=== PATIENT | male | born 1960 | race Caucasian/White ===

== ENCOUNTER 2020-04-08 07:23 | Outpatient (REF) | payer BC, SELFPAY ==
[2020-04-08 11:14] LABS: MANUAL DIFF FLAG NO
[2020-04-08 11:21] LABS: Basophils Percent Auto 0.4 % (0-2); Eosinophils Absolute Auto 0.1 X10*3/uL (0.0-0.4); Eosinophils Percent Auto 0.9 % (0-4); Hemoglobin 12.9 g/dl (14.0-18.0); Imm Gran Abs Auto 0.02 X10*3/uL (0.00-0.03); Imm Gran Pct Auto 0.4 % (0.0-0.4); Lymphocytes Absolute Auto 1.9 X10*3/uL (1.2-4.9); Lymphocytes Percent Auto 33.5 % (20-40); Mean Corpuscular HGB Conc 33.1 g/dl (31.0-36.0); Mean Corpuscular Hemoglobin 33.2 pg (27.0-33.0); Mean Corpuscular Volume 100.3 fL (80-98); Mean Platelet Volume 9.8 fL (9.4-12.4); Monocytes Absolute Auto 0.6 X10*3/uL (0.1-1.2); Monocytes Percent Auto 9.8 % (2-11); Neutrophils Absolute Auto 3.1 X10*3/uL (2.0-8.3); Platelet Count 171 X10*3/uL (160-400); Red Blood Count 3.89 X10*6/uL (4.60-5.80); Red Cell Distribution Width 13.2 % (11.0-16.0); White Blood Count 5.6 X10*3/uL (4.8-10.8)
[2020-04-08 11:41] LABS: Alanine Aminotransferase 40 U/L (0-40); Albumin Level 4.4 g/dL (3.5-5.0); Alkaline Phosphatase 48 U/L (39-117); Anion Gap 10 (12-20); Aspartate Amino Transferase 29 U/L (5-37); Bilirubin Total 0.6 mg/dL (0.0-1.0); Blood Urea Nitrogen 28 mg/dL (9-16); Calcium 8.8 mg/dL (8.4-10.2); Carbon Dioxide 28 mmol/L (22-29); Chloride 105 mmol/L (96-108); Cholesterol 183 mg/dL; Estimated Glomerular Filt Rate > 60; Glucose Fasting 81 mg/dL (60-99); HDL Cholesterol 68 mg/dL; LDL Cholesterol Calculated 106 mg/dl; Potassium 3.9 mmol/l (3.3-5.1); Sodium 139 mmol/L (135-145); Total Protein 6.6 g/dL (6.5-8.0); Triglycerides 46 mg/dL
== END 2020-04-08 07:24 | disposition home or self-care (01) ==
LOC: HO.HMGCLDS 07:23
PROVIDERS: PCP Internal Medicine; Visit Provider Physician Assistant
DX: Z00.00 Encounter for general adult medical examination without abnormal findings (principal); Z13.6 Encounter for screening for cardiovascular disorders
CPT/HCPCS: 36415; 80053; 80061; 85025

== ENCOUNTER 2020-05-04 07:59 | Outpatient (REF) | payer BC, SELFPAY ==
[2020-05-04 12:18] LABS: Folate > 20.0 ng/mL (> or = 4.0); Vitamin B12 > 2000 pg/mL (200-900)
[2020-05-04 12:23] LABS: Iron 148 mcg/dL (45-160); Percent Iron Saturation 46 % (15-50); Total Iron Binding Capacity 323 mcg/dL (228-428); Unsaturated Iron Binding 175 ug/dL
== END 2020-05-04 08:00 | disposition home or self-care (01) ==
LOC: HO.HMGCLDS 07:59
PROVIDERS: PCP Internal Medicine; Visit Provider Physician Assistant
DX: D64.9 Anemia, unspecified (principal)
CPT/HCPCS: 36415; 82607; 82746; 83540

== ENCOUNTER 2022-07-05 07:26 | Outpatient (REF) | payer BC, SELFPAY ==
[2022-07-05 11:41] LABS: MANUAL DIFF FLAG NO
[2022-07-05 11:51] LABS: Basophils Percent Auto 0.8 % (0-2); Eosinophils Absolute Auto 0.1 X10*3/uL (0.0-0.4); Hematocrit 40.9 % (42.0-52.0); Hemoglobin 13.6 g/dl (14.0-18.0); Imm Gran Abs Auto 0.01 X10*3/uL (0.00-0.03); Imm Gran Pct Auto 0.3 % (0.0-0.4); Lymphocytes Percent Auto 28.9 % (20-40); Mean Corpuscular HGB Conc 33.3 g/dl (31.0-36.0); Mean Corpuscular Hemoglobin 33.3 pg (27.0-33.0); Mean Platelet Volume 9.8 fL (9.4-12.4); Monocytes Absolute Auto 0.4 X10*3/uL (0.1-1.2); Monocytes Percent Auto 12.3 % (2-11); Neutrophils Percent Auto 55.7 % (45-73); Platelet Count 174 X10*3/uL (160-400); Red Blood Count 4.09 X10*6/uL (4.60-5.80); Red Cell Distribution Width 13.2 % (11.0-16.0); White Blood Count 3.6 X10*3/uL (4.8-10.8)
[2022-07-05 12:02] LABS: Estimated Average Glucose 120 mg/dL; Hemoglobin A1C 148.4415 umol/L; Hemoglobin A1c % 5.8 %
[2022-07-05 12:22] LABS: Alanine Aminotransferase 33 U/L (0-40); Albumin Level 4.4 g/dL (3.5-5.0); Alkaline Phosphatase 48 U/L (39-117); Anion Gap 10 (12-20); Aspartate Amino Transferase 32 U/L (5-37); Bilirubin Total 0.5 mg/dL (0.0-1.0); Blood Urea Nitrogen 19 mg/dL (9-16); Calcium 9.1 mg/dL (8.4-10.2); Carbon Dioxide 29 mmol/L (22-29); Chloride 107 mmol/L (96-108); Cholesterol 173 mg/dL; Estimated Glomerular Filt Rate > 60; Glucose Random 91 mg/dL (60-115); HDL Cholesterol 57 mg/dL; LDL Cholesterol Calculated 106 mg/dl; Potassium 4.3 mmol/L (3.3-5.1); Sodium 142 mmol/L (135-145); Total Protein 6.6 g/dL (6.5-8.0); Triglycerides 54 mg/dL
[2022-07-05 12:39] LABS: Prostate Specific Antigen 1.55 ng/mL (<0.05-4.0)
== END 2022-07-05 07:27 | disposition home or self-care (01) ==
LOC: HO.HMGCLDS 07:26
PROVIDERS: PCP Internal Medicine; Visit Provider Physician Assistant
DX: Z00.00 Encounter for general adult medical examination without abnormal findings (principal); Z12.5 Encounter for screening for malignant neoplasm of prostate; Z80.42 Family history of malignant neoplasm of prostate; E78.00 Pure hypercholesterolemia, unspecified; R73.01 Impaired fasting glucose
CPT/HCPCS: 36415; 80053; 80061; 83036; 84153; 85025

== ENCOUNTER 2023-11-13 07:26 | Outpatient (REF) | payer MEDICARE, SELFPAY ==
[2023-11-13 10:20] LABS: MANUAL DIFF FLAG NO
[2023-11-13 10:26] LABS: Basophils Percent Auto 0.6 % (0-2); Eosinophils Absolute Auto 0.1 X10*3/uL (0.0-0.4); Eosinophils Percent Auto 1.9 % (0-4); Hemoglobin 13.7 g/dl (14.0-18.0); Lymphocytes Percent Auto 32.6 % (20-40); Mean Corpuscular HGB Conc 34.3 g/dl (31.0-36.0); Mean Corpuscular Hemoglobin 33.7 pg (27.0-33.0); Mean Corpuscular Volume 98.5 fL (80.0-98.0); Mean Platelet Volume 9.9 fL (9.4-12.4); Monocytes Absolute Auto 0.4 X10*3/uL (0.1-1.2); Monocytes Percent Auto 12.2 % (2-11); Neutrophils Absolute Auto 1.7 x10*3/uL (2.0-8.3); Neutrophils Percent Auto 52.7 % (45-73); Platelet Count 149 X10*3/uL (160-400); Red Blood Count 4.06 X10*6/uL (4.60-5.80); Red Cell Distribution Width 13.3 % (11.0-16.0); White Blood Count 3.2 X10*3/uL (4.8-10.8)
[2023-11-13 11:02] LABS: HBS Num1 78.63 mIU/mL (0-7.99); ~Hepatitis B Surface Antibody REACTIVE (Nonreactive)
[2023-11-13 11:03] LABS: Alanine Aminotransferase 31 U/L (0-40); Albumin Level 4.4 g/dL (3.5-5.0); Alkaline Phosphatase 45 U/L (39-117); Anion Gap 13 (12-20); Aspartate Amino Transferase 29 U/L (5-37); Bilirubin Total 0.6 mg/dL (0.0-1.0); Blood Urea Nitrogen 20 mg/dL (9-16); Calcium 9.6 mg/dL (8.4-10.2); Carbon Dioxide 28 mmol/L (22-29); Chloride 105 mmol/L (96-108); Cholesterol 163 mg/dL (<200); Estimated Glomerular Filt Rate > 60; Glucose Random 93 mg/dL (60-115); HDL Cholesterol 59 mg/dL (>40); LDL Cholesterol Calculated 93 mg/dL (<100); Potassium 4.3 mmol/L (3.3-5.1); Sodium 142 mmol/L (135-145); Total Protein 6.8 g/dL (6.5-8.0); Triglycerides 59 mg/dL (<150)
[2023-11-13 11:12] LABS: Estimated Average Glucose 117 mg/dL; Hemoglobin A1c % 5.7 % (<6.0)
[2023-11-13 11:18] LABS: Prostate Specific Antigen 2.35 ng/mL (<0.05-4.0)
== END 2023-11-13 07:27 | disposition home or self-care (01) ==
LOC: HO.HMGCLDS 07:26
PROVIDERS: PCP Internal Medicine; Visit Provider Physician Assistant
DX: Z00.00 Encounter for general adult medical examination without abnormal findings (principal); Z23 Encounter for immunization; Z12.5 Encounter for screening for malignant neoplasm of prostate; Z13.1 Encounter for screening for diabetes mellitus; Z13.220 Encounter for screening for lipoid disorders; Z13.0 Encounter for screening for diseases of the blood and blood-forming organs and certain disorders involving the immune mechanism
CPT/HCPCS: 36415; 80053; 80061; 83036; 84153; 85025; 86706

== ENCOUNTER 2024-03-17 07:40 | Day surgery (SDC) | payer MEDICARE, SELFPAY ==
[2024-03-13 13:44] VITALS: BMI 26.0
--- NOTE | 2024-03-14 10:15 | HO.ANESPROP2 ---
Documented by User: Marilu Perez NP 03/14/24 10:15 HPI - Anesthesia Eval Consult details Narrative: 63yo M for Upper Endoscopy [facility] Past Medical History Medical History Migraines Elevated cholesterol GERD (gastroesophageal reflux disease) Renal calculi Surgical History Surgical History History of right hip replacement Hx of tonsillectomy Hx of appendectomy H/O colonoscopy History of esophagogastroduodenoscopy (EGD) Social History Social History Patient Tobacco Use Status: Never used Tobacco Use of substances other than those prescribed or required for medical reasons: No Are you DNR?: No Advance Directives: No Advance Directives Information Provided: Yes Recently lost weight without trying: No Meds Allergies Allergy/AdvReac Type Severity Reaction Status Date / Time hazelnut Allergy Unknown Unknown Verified 03/17/24 07:46 walnut Allergy Unknown Unknown Verified 03/17/24 07:46 Home Medications ?Medication ?Instructions ?Recorded ?Confirmed ?Last Taken ?Type aspirin 81 mg tablet,delayed 81 mg PO DAILY 03/13/24 03/17/24 03/10/24 History release meloxicam 15 mg tablet 15 mg PO DAILY 03/13/24 03/17/24 03/10/24 History omega 6-sxz-ewy-fish oil 300 1 cap PO DAILY 03/13/24 03/17/24 03/10/24 History mg-1,000 mg capsule (Fish Oil) pantoprazole 40 mg tablet,delayed 40 mg PO DAILY 03/13/24 03/17/24 Unknown History release rizatriptan 10 mg tablet 10 mg PO DAILY PRN Migraine 03/13/24 03/17/24 Unknown History Headache simvastatin 20 mg tablet 20 mg PO DAILY 03/13/24 03/17/24 Unknown History Exam Height,Weight and Vital Signs: Height 5 ft 5 in Weight 70.76 kg Assessment and Plan Assessment Anesthesia Assessment: Chart Reviewed Documented by User: Darlin Rosales MD 03/17/24 09:14 [facility] Past Medical History Medical History Migraines Elevated cholesterol GERD (gastroesophageal reflux disease) Renal calculi Family History Family history of problems with anesthesia: No Surgical History Surgical History History of right hip replacement Hx of tonsillectomy Hx of appendectomy H/O colonoscopy History of esophagogastroduodenoscopy (EGD) History of Problems with Anesthesia: No Social History Social History Patient Tobacco Use Status: Never used Tobacco Use of substances other than those prescribed or required for medical reasons: No Are you DNR?: No Advance Directives: No Advance Directives Information Provided: Yes Recently lost weight without trying: No Meds Allergies Allergy/AdvReac Type Severity Reaction Status Date / Time hazelnut Allergy Unknown Unknown Verified 03/17/24 07:46 walnut Allergy Unknown Unknown Verified 03/17/24 07:46 Home Medications ?Medication ?Instructions ?Recorded ?Confirmed ?Last Taken ?Type aspirin 81 mg tablet,delayed 81 mg PO DAILY 03/13/24 03/17/24 03/10/24 History release meloxicam 15 mg tablet 15 mg PO DAILY 03/13/24 03/17/24 03/10/24 History omega 5-vba-lio-fish oil 300 1 cap PO DAILY 03/13/24 03/17/24 03/10/24 History mg-1,000 mg capsule (Fish Oil) pantoprazole 40 mg tablet,delayed 40 mg PO DAILY 03/13/24 03/17/24 Unknown History release rizatriptan 10 mg tablet 10 mg PO DAILY PRN Migraine 03/13/24 03/17/24 Unknown History Headache simvastatin 20 mg tablet 20 mg PO DAILY 03/13/24 03/17/24 Unknown History Exam Airway Mallampati Class: II TM Dist: >3cm Neck ROM: Full Heart: rrr Lungs: cta Assessment and Plan Assessment Anesthesia Assessment: Anesthesia Plan Discussed Final Anesthetic Review Family History of Problems with Anesthesia: No History of Problems with Anesthesia: No NPO: Yes ASA Class: II Final Preanesthetic Review: No Changes in Pt Med Stat, Meds/Allgs Chart Reviewed, Consent Obtained/Reviewed and Anes Risks/Benef Reviewed Patient Risk: Low Procedure Risk: Low Anesthetic Plan Anesthetic Plan: MAC: Disposition: Standard PACU
[2024-03-17 07:47] VITALS: BMI 26.3
[2024-03-17 07:59] VITALS: BP 134/83; PULSE 70; RESP 15; TEMP 36.8; O2SAT 97
[2024-03-17] MEDS: Lactated Ringers 1,000 ML 100 ML IVCONT (08:14)
[2024-03-17 09:05] VITALS: BP 106/75; PULSE 73; RESP 14; TEMP 36.6; O2SAT 99
--- NOTE | 2024-03-17 09:09 | PM.OP ---
Brief Operative Note Date of Service: 03/17/24 Pre-op diagnosis: GERD Post-op diagnosis: other (Same, Hiatal hernia) Procedure: EGD with biopsies Surgeon: Jamil Davis MD Anesthesia: MAC Was an Per Assessment Nurse used for this Procedure?: No Estimated blood loss (mL): 2.0 Pathology: other (A. EG Junction at 36cm) Condition: stable Disposition: PACU
[2024-03-17 09:20] VITALS: BP 128/82; PULSE 70; RESP 16; O2SAT 97
[2024-03-17 09:34] VITALS: BP 127/85; PULSE 66; RESP 16; TEMP 36.6; O2SAT 97
--- NOTE | 2024-03-17 10:37 | OP_ITS ---
DATE OF SERVICE: 03/17/2024 SURGEON: Jamil Davis MD INDICATIONS: The patient presents for evaluation of gastroesophageal reflux. Full consent has been obtained from him for this, including risks of bleeding and perforation. PREOPERATIVE DIAGNOSIS: Gastroesophageal reflux. POSTOPERATIVE DIAGNOSIS: Gastroesophageal reflux, small hiatal hernia, rule out Beyer esophagus. PROCEDURE PERFORMED: Esophagogastroduodenoscopy with biopsies. ESTIMATED BLOOD LOSS: COMPLICATIONS: ANESTHESIA: Monitored anesthesia care. ASSISTANTS: SPECIMENS: DESCRIPTION OF PROCEDURE: Patient was placed in the left lateral decubitus position. The Olympus video gastroscope was passed in the posterior oropharynx and upper esophagus under direct vision. The scope was passed slowly to the distal esophagus. The gastroesophageal junction appeared at 36 cm. There was some very minimal irregularity consistent with reflux and possibly several millimeter areas of Beeyr mucosa. There was no inflammation nor lesions. Scope entered the stomach. There was a small hiatal hernia. The scope was advanced to pylorus, and the duodenum was cannulated to the descending portion. The duodenum including the bulb appeared normal without mass or ulceration. The scope was withdrawn back to the stomach. The gastric antrum and body appeared normal with good peristalsis. The scope was retroflexed, visualizing the proximal stomach carefully, which appeared normal, without any sign of mass or ulceration. Scope was straightened and withdrawn back to the esophagus. Biopsies were obtained at the EG junction at 36 cm. Proximal to this, the esophageal mucosa appeared normal. Scope was withdrawn from the patient. He tolerated the procedure well and was returned to the recovery area in stable condition. IMPRESSION: Small hiatal hernia, gastroesophageal reflux, rule out Beyer esophagus. PLAN: The results of biopsies will be checked. If there is evidence of Beyer esophagus without dysplasia, I would recommend a repeat upper endoscopy in 3 years. He was advised to continue his current regimen of daily pantoprazole and the evening dose of [id number] Prevacid as needed. He was advised not to use any aspirin and NSAIDs for 1 more week. Depending upon his clinical course, we may recommend workup for hiatal hernia surgery if the reflux remains problematic despite being on at least once a day PPIs. From the endoscopic findings today, I do not think he definitely needs that, but that would depend upon his clinical symptoms and desires about undergoing surgery. MD BRINDA Orellana/MARILU / [phone]
--- OUTSIDE RECORDS SUMMARY | 2024-03-19 12:40 | XMS_ITS ---
Author Organization [facility] Address [address] [place] [phone] Care Team Providers Care Test Fixture Designer Name Role Phone Richard Blanco Primary Care Provider Jamil Medina [phone] REASON FOR VISIT gerd,hiatal hernia,heartburn Encounters Encounter Location Date Provider Diagnosis [facility] [address] [place] [phone] 03/17/2024 Jamil Davis PLAN OF TREATMENT No Information
--- OUTSIDE RECORDS SUMMARY | 2024-03-19 12:40 | XMS_ITS ---
Author Organization [facility] Address [address] [place] [phone] Care Team Providers Care Network Systems Analyst Name Role Phone Richard Blanco Primary Care Provider Jamil Medina [phone] ALLERGIES Allergen (clinical drug ingredient) Drug/Non Drug Allergy documented on EMR Reaction Allergy Type Onset Date Status walnuts and hazelnut s (uncoded) Unknown Allergy Active REASON FOR VISIT Patient presents today for GERD MEDICATIONS Medication SIG (Take, Route, Frequency, Duration) Notes Start Date End Date Status Aspirin 81 81 MG 1 tablet Orally Once a day for 30 day(s) Active Rizatriptan Benzoate 10 MG TAKE 1 TABLET BY MOUTH EVERY DAY NEEDED FOR 10 DAYS Oral as needed for migraines Active Fish Oil 1000 MG 1 capsule Orally Onc e a day for 30 day(s) Active Simvastatin 20 MG 1 tablet in the even ing Orally Once a day for 30 day(s) Active Protonix 40 MG 1 tablet Orally Once a day for 30 day(s) Active Meloxicam 15 MG Oral for 90 Ac tive SOCIAL HISTORY Tobacco Use: Social History Observation Description Date Details (start date - stop date) Never Smoker NA - NA Sex Assigned At : Social History Observation Description Sex Assigned At Unknown Tobacco Use/Smoking Question Answer Notes Patient is a nonsmoker Alcohol Screen Question Answer Notes Did you have a drink containing alcohol in the p ast year? No Points 0 Interpretation Negative PROBLEMS Problem Type ICD Code Onset Dates Problem Status W/U Status Risk SNOMED Code Notes Problem Chronic GERD (K21.9) Active confirmed Gastroesophagea l reflux disease (172087203) Problem Hiatal hernia (K44.9) Active confirmed Hiatal hernia (83498036) Problem Heartburn (R12) Active confirmed Heartburn (49767018) VITAL SIGNS BMI 25.96 kg/m2 11/27/2023 Blood pressure systolic 00 mm Hg 11/27/19 24 Blood pressure diastolic 00 mm Hg 024 Height 65 in 11/27/2023 Weight 156 lbs 11/27/2023 Encounters Encounter Location Date Provider Diagnosis [facility] [address] [place] [address] 11/27/2023 Jamil Davis Chronic GERD K21.9 ; Hiatal hernia K44.9 and Heartburn R12 ASSESSMENTS Encounter Date Diagnosis Assessment Notes Treatment Notes Treatment Clinical Notes 11/27/2023 Chronic GERD (ICD-10 - K21.9) Stop the aspirin, fish oil, and meloxicam for one week before the endoscopy. 11/27/2023 Hiatal hernia (ICD-10 - K44.9) 11/27/2023 Heartburn (ICD-10 - R12) PLAN OF TREATMENT Treatment Notes Assessment Notes Chronic GERD Stop the aspirin, fi sh oil, and meloxicam for one week before the endoscopy. Future Test Test Name Order Date UPPER GI ENDOSCOPY 11/27/2023 Next Appt Details Follow Up: prn, Reason: Progress Notes * Examination Category Sub-Category Detail Notes General Examination GENERAL APPEARANCE: pleasant , well nourished, well developed, in no acute distress HEAD: EYES: sclera non-icteric EARS: NOSE: THROAT: NECK/THYROID: no cervical lymphade nopathy, neck supple HEART: S1, S2 normal CHEST: LUNGS: clear to auscultatio n bilaterally ABDOMEN: normal bowel sounds, no guarding or rigidity, no guarding or rigidity, no masses palpable, soft, nontender, nondistended NEUROLOGIC: alert and oriented SKIN: nonjaundiced, no spi dank angiomata EXTREMITIES: no edema PERIPHERAL PULSES: BACK: BREASTS: MUSCULOSKELETAL: MALE GENITOURINARY: LYMPH NODES: RECTAL EXAM: FEMALE GENITOURINARY: ORAL CAVITY: mucosa moist
--- OUTSIDE RECORDS SUMMARY | 2024-03-19 12:40 | XMS_ITS ---
Author Organization [facility] Address [address] [place] [phone] Care Team Providers Care Registrar Assistant Name Role Phone Richard Blanco Primary Care Provider Jamil Medina [phone] Encounters Encounter Location Date Provider Diagnosis [facility] [address] [place] [phone] 11/27/2023 Jamil Davis PLAN OF TREATMENT No Information
--- OUTSIDE RECORDS SUMMARY | 2024-03-19 12:41 | XMS_ITS | Patient Health Record ---
Author Organization [facility] Address [address] [place] [address] Care Team Providers Care Ship Liner Name Role Phone Richard Blanco Primary Care Provider Jamil Medina [phone] ALLERGIES Allergen (clinical drug ingredient) Drug/Non Drug Allergy documented on EMR Reaction Allergy Type Onset Date Status walnuts and hazelnut s (uncoded) Unknown Allergy Active RESULTS Component Value Reference Range Notes Pathology (Not yet reviewed by provider) Interpretation: Performing Lab:[facility], [address] [place] [phone] Notes/Report: REASON FOR REFERRAL No Information MEDICATIONS Medication SIG (Take, Route, Frequency, Duration) [...] 15 MG Oral for 90 Ac tive IMMUNIZATIONS Vaccine Route Administration Date Status Comme nts Influenza Unknown 04/22/2019 Refused SOCIAL HISTORY Tobacco Use: Social History Observation [...] W/U Status Risk SNOMED Code Notes Problem Gastroesophageal reflux disease without esophagitis (K21.9) Active confirmed 521509528 Problem Encounter for screening for malignant neoplasm of colon (Z12.11) Active confirmed 655617306 Problem Chronic GERD (K21.9) Active confirmed Gastroesophagea l reflux disease (815049537) Problem Hiatal hernia (K44.9) Active confirmed Hiatal hernia (04315588) Problem Heartburn (R12) Active confirmed Heartb urn (51881864) VITAL SIGNS Blood pressure diastolic 00 mm Hg 11/27/2023 Height 65 in 11/27/2023 Blood pressure systolic 00 mm Hg 11/27/2023 Weight 156 lbs 11/27/2023 BMI 25.96 kg/m2 11/27/2023 Encounters Encounter Location Date Provider Diagnosis [facility] [place] [facility] [address] [place] [phone] 03/17/2024 Jamil Davis [facility] [address] [place] [phone] 11/27/2023 Jamil Davis Chronic GERD K21.9 ; Hiatal hernia K44.9 and Heartburn R12 [facility] [address] [place] [phone] 11/27/2023 Jamil Davis ASSESSMENTS Encounter Date Diagnosis Assessment Notes Treatment Notes Treatment Clinical Notes 11/27/2023 Hiatal hernia (ICD-10 - K44.9) 11/27/2023 Chronic GERD (ICD-10 - K21.9) Stop the aspirin, fish oil, and meloxicam for one week before the endoscopy. 11/27/2023 Heartburn (ICD-10 - R12) PLAN OF TREATMENT Pending Test Test Name Order Date Pathology 03/17/2024 Future Test Test Name Order Date COLONOSCOPY 04/22/2019 UPPER GI ENDOSCOPY 11/27/2023 Insurance Providers Payer Name Payer Address Payer Phone Subscriber Number Group Number Insured Name Patient Relationship to Insured Coverage Start Date Coverage End Date [employer] [employer] [place] [address] [id number] SAMANTHA CEDENO Self - patient is the insured [employer] CLAIMS [address] [place] [address] [phone] [id number] SAMANTHA CEDENO Self - patient is the insured MEDICAL (GENERAL) HISTORY Medical History History ICD Code Hx of kidney stones over 40 years ago GERD--EGD in October 2008 revea led only a small hiatal hernia-there was no evidence of esophagitis or Beyer's esophagus. Elevated Cholesterol Migraines Neg. screening colonoscopy in 10/2008 Denies [place],DM,CVA,Lung disease,renal dise ase Screening colonoscopy in 2019 revealed o nly a hyperplastic polyp. Surgical History Surgery Date(Month/Year) Appy Tonsillectomy Right hip replacement 2020
== END 2024-03-17 10:23 | disposition home or self-care (01) ==
PROVIDERS: PCP Internal Medicine; Visit Provider Internal Medicine
PROC: 0DJ08ZZ Inspection of Upper Intestinal Tract, Via Natural or Artificial Opening Endoscopic (ICD-10-PCS; CPT 43235; principal; 2024-03-17 08:40)
DX: K21.9 Gastro-esophageal reflux disease without esophagitis (principal); K44.9 Diaphragmatic hernia without obstruction or gangrene; E78.00 Pure hypercholesterolemia, unspecified; G43.909 Migraine, unspecified, not intractable, without status migrainosus; N20.0 Calculus of kidney; Z79.899 Other long term (current) drug therapy; Z98.890 Other specified postprocedural states; Z79.82 Long term (current) use of aspirin
CPT/HCPCS: 43239; 88305; 88313; J2003; J2704